=== PATIENT | male | born 1960 | race Caucasian/White ===

== ENCOUNTER 2024-05-16 16:43 | Outpatient (CLI) | payer BC, SELFPAY ==
--- NOTE | ~2024-05-16 | XR_ITS ---
EXAM: XR facial bones min 3V DATE: 05/16/2024 17:07 HISTORY: Rt side facial lump swelling post trauma x1 mo . COMPARISON: None available. FINDINGS: Normal mineralization. No fracture or dislocation. No lytic or blastic lesion. Intact, sym metric orbits. The aerated spaces are clear. No abnormal intracranial calcification. No erosion or pe riosteal change. Soft tissues within normal limits. IMPRESSION: Unremarkable facial bone radiograph findings. If clinical suspicion of injury is high or symptoms persist, consider CT of the face for further evaluation. Reviewed, dictated and finalized at location K. IMPRESSION: Unremarkable facial bone radiograph findings. If clinical suspicion of injury is high or symptoms persist, consider CT of the face for further leonie luation.
== END 2024-05-16 16:44 | disposition home or self-care (01) ==
LOC: ANHIMG 16:44
PROVIDERS: PCP Family Medicine; Visit Provider Physician Assistant
DX: R22.0 Localized swelling, mass and lump, head (principal)
CPT/HCPCS: 70150

== ENCOUNTER 2024-05-22 07:48 | Outpatient (CLI) | payer BC, SELFPAY ==
--- NOTE | ~2024-05-22 | CT_ITS ---
CT facial bones w con Ordering provider: Kady Mukherjee, PAC History: . R22.0 - Localized swelling, mass and lump, head . Comparison: None. Technique: Thin slice axial CT of the facial bones was performed without contrast. Coronal and sagit mandie reformatted images were also obtained. . Automated exposure control and iterative reconstruction technique were employed. The dose-length product was 281.92 mGy-cm. 75 mL Omnipaque 350 was given IV . FINDINGS: PARANASAL SINUSES: Well aerated. BONES: No facial fracture including no nasal bone fracture. ORBITS AND SUPERFICIAL SOFT TISSUES: The optic globes and orbits are normal. Multilobulated Soft tiss ue density seen anterior to the right ear measuring 1.3 x 1 cm. And 0.8 x 1.3 cm. The caudocranial me asurement of this mass is 3 cm. This may be a lymph nodes. Soft tissue density also seen inferior to the right submandibular gland which may be part of the gland. Further evaluation advised. Follow-up advised. The superficial soft tissues are normal. VISUALIZED MASTOIDS: Well aerated. LIMITED VISUALIZED BRAIN PARENCHYMA: Normal. Right parapharyngeal enlarged lymph nodes seen measuring 2.2 x 2.7 x2.5 cm. IMPRESSION: No facial fracture. Mass in the preauricular area which measures 1.3 x 1 x 3 cm. Further evaluation advised. Necrotic lymph nodes seen in the right parapharyngeal space which measures 2.2 x 2.7 x2.5 cm. Reviewed, dictated and finalized at location A.
== END 2024-05-22 07:49 | disposition home or self-care (01) ==
PROVIDERS: PCP Family Medicine; Visit Provider Physician Assistant
DX: R22.0 Localized swelling, mass and lump, head (principal)
CPT/HCPCS: 70487; Q9967

== ENCOUNTER 2024-06-05 09:25 | Outpatient (CLI) | payer BC, SELFPAY ==
--- NOTE | ~2024-06-05 | US_ITS ---
EXAMINATION: US FNA w image guidance DATE: 06/05/2024 11:07 INDICATION: Right parotid nodule TECHNIQUE: A time-out was performed to verify the patient's name, date of , and procedure to be performed . The procedure and its benefits and risks were discussed with the patient. Risks specifically discus sed included bleeding and infection. The patient understood the risks and agreed to proceed. The prea uricular right face was prepped and draped in the usual sterile manner. 2 mL 1% lidocaine was used f or local anesthesia. 6 passes were made with a 25G needle into the lesion. Appropriate needle locat ion was documented with continuous sonographic guidance. A sterile bandage was applied. There were no immediate complications. FINDINGS: Grayscale ultrasound images demonstrate biopsy needles advanced into a 2.7 x 1.2 cm lobular hypoechoi c nodule at the posterior superior right parotid. IMPRESSION: 1. Successful ultrasound-guided fine needle aspiration of a 2.7 x 1.2 cm right parotid nodule of con cern. Reviewed, dictated and finalized at location A. IMPRESSION: 1. Successful ultrasound-guided fine needle aspiration of a 2.7 x 1.2 cm right parotid nodule of concern.
--- NOTE | ~2024-06-05 | US_ITS ---
EXAMINATION: US biopsy lymph node DATE: 06/05/2024 11:07 INDICATION: Right jugular chain lymph node TECHNIQUE: The procedure including the risks and benefits was discussed with the patient. Risks discu ssed included bleeding and infection. The patient understood the risks and agreed to proceed. The sk in overlying the right neck was prepped and draped in usual sterile fashion. Anesthetic was administ ered with 1% lidocaine subcutaneously. An 18 gauge core biopsy needle was advanced under continuous ultrasound observation to the enlarged lymph node of interest. 4 core biopsy specimens were obtained . The needle was removed and the entry site was cleaned and dressed. Post procedure ultrasound demo nstrated no hemorrhage. FINDINGS: Ultrasound images demonstrate biopsy needle advanced into the 3.4 x 2.1 cm right jugular ch ain lymph node of concern. IMPRESSION: 1. Successful Ultrasound-guided biopsy of a 3.4 x 2.1 cm enlarged right jugular chain lymph node. Reviewed, dictated and finalized at location A.
== END 2024-06-05 09:26 | disposition home or self-care (01) ==
PROVIDERS: PCP Family Medicine; Visit Provider Physician Assistant
DX: C07 Malignant neoplasm of parotid gland (principal)
CPT/HCPCS: 10005; 10006; 38505; 76942; 88108; 88305; 88342

== ENCOUNTER 2024-07-04 08:12 | Outpatient (CLI) | payer BC, SELFPAY ==
--- NOTE | ~2024-07-04 | CT_ITS ---
EXAMINATION: CT soft tissue neck chest w DATE: 07/04/2024 09:03 INDICATION: Mucosal epidermoid carcinoma. TECHNIQUE: Computed tomography (CT) of the neck and chest was performed with 75 mL Omnipaque-350 intr avenous contrast. Automated exposure control and iterative reconstruction technique were employed. Th e dose-length product was 811.75 mGy-cm. COMPARISON: None FINDINGS: CT NECK: There is a right preauricular mass with involvement of the parotid gland measuring 2.8 x 1.6 x 3.5 cm. There is a 3.5 x 2.7 cm right high internal jugular chain lymph node. There is mild plaque in proximal left internal carotid artery with 0% stenosis relative to normal distal artery lumen oscar meter. There is mild mucosal thickening in the ethmoid sinuses. The mastoid air cells are normal. The re is severe cervical spondylosis. CT CHEST: There is mild emphysema. A calcified left lung nodule and calcified left hilar lymph nodes are consistent with old granulomatous disease. There is mild dependent atelectasis bilaterally. No pl eural effusion. The heart size is normal. There are coronary artery calcifications. No pericardial ef fusion. There is a 2.6 cm cyst in the liver. There is mild cervical spondylosis. IMPRESSION: 1. 2.8 x 1.6 x 3.5 cm right preauricular mass with involvement of the parotid gland, consistent with primary malignancy. 2. Enlarged right high internal jugular chain lymph node, consistent with metastatic disease. 3. Mild emphysema. Reviewed, dictated and finalized at location A. IMPRESSION: 1. 2.8 x 1.6 x 3.5 cm right preauricular mass with involvement of the parotid g land, consistent with primary malignancy. 2. Enlarged right high internal jugular chain lymph node, consistent with metas tatic disease. 3. Mild emphysema.
[2024-07-04 08:48] LABS: Estimated Glomerular Filt Rate > 60
== END 2024-07-04 08:13 | disposition home or self-care (01) ==
PROVIDERS: PCP Family Medicine; Visit Provider Internal Medicine Hematology & Oncology
DX: C08.0 Malignant neoplasm of submandibular gland (principal); C07 Malignant neoplasm of parotid gland; R59.0 Localized enlarged lymph nodes; J43.9 Emphysema, unspecified
CPT/HCPCS: 70491; 71260; Q9967

== ENCOUNTER 2024-08-20 08:59 | Outpatient (CLI) | payer BC, SELFPAY ==
--- NOTE | ~2024-08-20 | PE_ITS ---
EXAMINATION: PET skull to mid thigh DATE: 08/20/2024 11:28 INDICATION: Malignant neoplasm of prostate gland. TECHNIQUE: Blood glucose level was 96 mg/dL. 8.538 mCi of 18-fluorodeoxyglucose (18-FDG) was administ ered i.v. Low dose computed tomography (CT) images were acquired from the base of the brain to the pr oximal thighs for attenuation correction and anatomic localization. Automated exposure control was em ployed. Dose-length product (DLP) was 1045 mGy-cm. Positron emission tomography (PET) images were acq uired in the same distribution. COMPARISON: CT neck and chest 07/04/2024 FINDINGS: Head/neck: There is a 2.9 x 2.2 cm mass in the expected area of superficial right parotid gland with peripheral activity measuring up to maximum SUV of 5.0. There is a 1.7 x 0.9 cm mass in deep right pa rotid gland abutting the temporomandibular joint with maximum SUV of 31.5. There is fat stranding in right neck, likely changes of surgery and/or radiation therapy. Right submandibular gland is small or absent. Chest: There is mild emphysema. No pleural effusion. The heart size is normal. No pericardial effusio n. There are coronary artery calcifications. Abdomen/pelvis/proximal thighs: There is diffuse hepatic steatosis. There is a 2.5 cm cyst in the chiara er. The gallbladder, spleen, pancreas, adrenal glands, and right kidney are normal. There is a 6 mm h yperdense cyst in left kidney. The prostate is moderately enlarged. There is diffuse bladder wall thi ckening, likely secondary to chronic obstruction. There is diverticulosis of the colon without eviden ce of diverticulitis. There are no dilated loops of bowel. The appendix is normal. There are no patho logically enlarged lymph nodes. There is no free intraperitoneal fluid. There is no osseous malignanc y. IMPRESSION: 1. Mass in superficial right parotid gland with low central activity, consistent with surgical change . Mildly increased peripheral activity may be postsurgical inflammation and/or malignancy. 2. Mass in deep right parotid gland with increased activity, consistent with residual or recurrent pr imary malignancy. Reviewed, dictated and finalized at location A. IMPRESSION: 1. Mass in superficial right parotid gland with low central activity, consisten t with surgical change. Mildly increased peripheral activity may be postsurgica l inflammation and/or malignancy. 2. Mass in deep right parotid gland with increased activity, consistent with re sidual or recurrent primary malignancy.
[2024-08-20 09:49] LABS: Glucose Point of Care 96 mg/dl (65-105)
== END 2024-08-20 09:00 | disposition home or self-care (01) ==
PROVIDERS: PCP Family Medicine; Visit Provider Radiology Radiation Oncology
DX: C07 Malignant neoplasm of parotid gland (principal)
CPT/HCPCS: 78815; A9552

== ENCOUNTER 2024-10-22 10:25 | Observation (INO) | payer BC, SELFPAY ==
[2024-10-22] VITALS (41 sets, daily range): BP systolic 139–159; BP diastolic 80–117; PULSE 55–138; RESP 4–20; TEMP 36.6–36.7; O2SAT 95–100; BMI 21.5
[2024-10-22 11:38] LABS: Basophils Percent Auto 0.1 % (0.2-1.2); Hematocrit 46.6 % (42.0-52.0); Hemoglobin 15.5 g/dL (14.0-18.0); Immature Granulocyte Absolute 0.02 K/mm3 (0.00-0.031); Immature Granulocyte Percent A 0.3 % (0-0.5); Immature Platelet Fraction Pct 5.6 % (0.9-11.2); Lymphocytes Absolute Auto 0.27 K/mm3 (0.9-3.2); Lymphocytes Percent Auto 3.7 % (18.3-44.2); Mean Corpuscular HGB Conc 33.3 g/dl (32-36); Mean Corpuscular Hemoglobin 28.5 pg (26-34); Mean Corpuscular Volume 85.7 fl (80-100); Mean Platelet Volume 11.9 fl (7.4-10.4); Monocytes Absolute Auto 0.6 K/mm3 (0.1-0.6); Monocytes Percent Auto 7.9 % (2.6-8.5); Neutrophils Absolute Auto 6.5 K/mm3 (1.3-6.7); Platelet Count Result 53 k/mm3 (150-375); Red Blood Count 5.44 M/mm3 (4.6-6.20); Red Cell Distribution Width 14.7 % (11.5-14.5); White Blood Count 7.4 K/mm3 (4.5-10.0)
[2024-10-22 11:49] LABS: Alanine Aminotransferase 29 U/L (6-50); Albumin Level 4.7 g/dL (3.5-5.1); Alkaline Phosphatase 105 U/L (38-126); Anion Gap 11 mmol/L (4-12); Aspartate Amino Transferase 27 U/L (17-59); Bilirubin,Total 0.9 mg/dL (0.2-1.3); Blood Urea Nitrogen 59 mg/dL (9-20); Calcium 10.1 mg/dL (8.4-10.2); Carbon Dioxide 27 mmol/L (22-30); Chloride 116 mmol/L (98-107); Estimated CRCL calculation 45 ml/min; Estimated Glomerular Filt Rate 55; Glucose 127 mg/dL (65-110); Sodium 154 mmol/L (137-145)
[2024-10-22 11:59] LABS: INR 1.2; Partial Thromboplastin Time 22.7 Seconds (22.3-36.8); Prothrombin Time 16.2 Seconds (11.1-14.7)
[2024-10-22] MEDS: SODIUM CHLORIDE 0.9% IV 1,000 ML 999 ML IV CONT ×2 (14:20→14:53)
--- NOTE | 2024-10-22 14:39 | ED.GENADULT ---
HPI - General Adult General Chief complaint: Unspecified Stated complaint: feel like i'm dying /recently finished Chemo Time Seen by Provider: 10/22/24 13:33 History of Present Illness HPI narrative: 64-year-old male presenting with nausea and vomiting. He is currently undergoing chemo and radiation therapy for parotid gland cancer. Over the last several days he has been persistently nauseated and has been only able to tolerate minimal p.o. intake. He has been using his p.o. Zofran and eating Pedialyte pops which seemed to stay down. Unfortunately he continues to vomit and he is concern for dehydration. 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 History of radical neck dissection Modified, 07/16/2024 with Janes FRANCOIS. History of tonsillectomy Range teeth removed Family History Family History Father Leukemia Mother Dementia Age-related macular degeneration Corneal disease Social History Social History Smoking status: Never smoker Tobacco type: cigars Second hand tobacco smoke exposure: No Alcohol intake: former Substance use: former Substance use type: marijuana Do You Feel Safe in your Home?: Yes Lack of Transportation: No Lack of Food: Never True Current Housing: I Have Housing Concerned About Future Housing: No Difficulty Paying Gas/Electric Bills: No Difficulty Paying for Meds: No Currently Unemployed: No Education: Trade/Vocational Certificate Difficulty w/ Childcare or Family Care: No Living arrangements: with family Occupation/Education: occupation Gender identity (if verbalized by the patient): Male Sexual Orientation (if Verbalized by the Patient): Straight or Heterosexual Spiritual care concerns: No Exam Narrative: GENERAL: Nontoxic, appears uncomfortable, pleasant cooperative HEAD: Normocephalic, atraumatic. EYES: PERRLA and EOMI. ENT: Mucous membranes tacky NECK: Supple. Erythematous skin changes right lateral neck from radiation CHEST: No respiratory distress. HEART: Tachycardic, regular rhythm ABDOMEN: Soft, nontender, nondistended EXTREMITIES: Normal range of motion SKIN: Warm, dry, no rash. NEURO: Alert and oriented x3. PSYCH: Normal mood and affect. Course Vital Signs Vital signs: Vital Signs Temperature 97.9 F 10/22/24 10:27 Pulse Rate 138 H 10/22/24 10:27 Respiratory Rate 18 10/22/24 10:27 Blood Pressure 149/108 H 10/22/24 10:27 Pulse Oximetry 100 10/22/24 10:27 Oxygen Delivery Room Air 10/22/24 10:27 Temperature 98.7 F 10/23/24 14:00 Pulse Rate 73 10/23/24 14:00 Respiratory Rate 18 10/23/24 14:00 Blood Pressure 150/99 H 10/23/24 14:00 Pulse Oximetry 99 10/23/24 14:00 Oxygen Delivery Room Air 10/23/24 09:25 Medical Decision Making MDM Narrative Medical decision making narrative: 64-year-old male presenting with intractable nausea and vomiting. Patient tachycardic on arrival, this had improved with the time I evaluated him. Exam remarkable for the above. Blood work with hypernatremia and elevated BUN to creatinine ratio concerning for dehydration. Patient has received several L of fluids and several rounds of IV antiemetics. Feel he would benefit from admission for further management. He is agreeable with this plan. Spoke with the hospitalist who has accepted him for admission. Differential Diagnosis Differential Diagnosis: Intractable nausea and vomiting, dehydration, hypernatremia Medical Records Medical records reviewed: Yes I reviewed the external patient's medical records. Vital Signs Vital Signs: Vital Signs Temperature 97.9 F 10/22/24 10:27 Pulse Rate 138 H 10/22/24 10:27 Respiratory Rate 18 10/22/24 10:27 Blood Pressure 149/108 H 10/22/24 10:27 Pulse Oximetry 100 10/22/24 10:27 Oxygen Delivery Room Air 10/22/24 10:27 Temperature 98.7 F 10/23/24 14:00 Pulse Rate 73 10/23/24 14:00 Respiratory Rate 18 10/23/24 14:00 Blood Pressure 150/99 H 10/23/24 14:00 Pulse Oximetry 99 10/23/24 14:00 Oxygen Delivery Room Air 10/23/24 09:25 Lab Data Lab results reviewed: Yes I reviewed the patient's lab results. 10/23/24 05:56 10/23/24 05:56 Labs: Lab Results 10/22/24 10/22/24 Range/Units 11:31 16:05 WBC 7.4 (4.5-10.0) K/mm3 RBC 5.44 (4.6-6.20) M/mm3 Hgb 15.5 (14.0-18.0) g/dL Hct 46.6 (42.0-52.0) % MCV 85.7 (80-100) fl MCH 28.5 (26-34) pg MCHC 33.3 (32-36) g/dl RDW 14.7 H (11.5-14.5) % Plt Count 53 L D (150-375) k/mm3 MPV 11.9 H (7.4-10.4) fl Immature Gran % (Auto) 0.3 (0-0.5) % Neut % (Auto) 88.0 H (45.5-73.1) % Lymph % (Auto) 3.7 L (18.3-44.2) % [place] % (Auto) 7.9 (2.6-8.5) % Eos % (Auto) 0.0 (0-4.4) % Baso % (Auto) 0.1 L (0.2-1.2) % Lymph # (Auto) 0.27 L (0.9-3.2) K/mm3 [place] # (Auto) 0.6 (0.1-0.6) K/mm3 Eos # (Auto) 0.0 (0-0.3) K/mm3 Baso # (Auto) 0.0 (0.0-0.1) K/mm3 Abs Immat Gran (auto) 0.02 (0.00-0.031) K/mm3 Absolute Neuts (auto) 6.5 (1.3-6.7) K/mm3 Absolute Nucleated RBC 0.000 (0.0-0.012) K/mm3 Nucleated RBC % 0.0 (0.0-0.2) % % Immature Plt Fraction 5.6 (0.9-11.2) % PT 16.2 H (11.1-14.7) Seconds INR 1.2 APTT 22.7 (22.3-36.8) Seconds Sodium 154 H (137-145) mmol/L Potassium 4.0 (3.4-5.0) mmol/L Chloride 116 H (98-107) mmol/L Carbon Dioxide 27 (22-30) mmol/L Anion Gap 11 (4-12) mmol/L BUN 59 H (9-20) mg/dL Creatinine 1.30 (0.7-1.3) mg/dL Estim Creat Clear Calc 45 ml/min Estimated GFR 55 L (59 - ) Glucose 127 H (65-110) mg/dL Calcium 10.1 (8.4-10.2) mg/dL Total Bilirubin 0.9 (0.2-1.3) mg/dL AST 27 (17-59) U/L ALT 29 (6-50) U/L Alkaline Phosphatase 105 (38-126) U/L Total Protein 8.0 (6.3-8.2) g/dL Albumin 4.7 (3.5-5.1) g/dL Lipase 61 (23-300) U/L Urine Color Yellow (Yellow) Urine Appearance Clear (Clear) Urine pH 5.0 (5.0-9.0) Ur Specific [place] 1.022 (1.001-1.035) Urine Protein 1+ H (Negative) mg/dL Urine Glucose (UA) Negative (Negative) mg/dL Urine Ketones 1+ H (Negative) mg/dL Ur Blood (Man) Negative (Negative) Urine Nitrate Negative (Negative) Urine Bilirubin Negative (Negative) Urine Urobilinogen 1.0 (<2.0) mg/dL Leukocyte Esterase Rfl Negative (Negative) NATALIE/UL Urine RBC 0-2 (0-2) /hpf Urine WBC 0-5 (0-3) /hpf Ur Squamous Epith Cells None seen (Few) /hpf Urine Bacteria None seen /hpf Urine Casts 3-5 Critical Care Time Critical Care Time Critical Care Time: No Discharge Plan Discharge Clinical Impression: Chemotherapy-induced nausea and vomiting, Head and neck cancer, Hypernatremia Patient Disposition: Still a Patient Condition: Stable
[2024-10-22] MEDS: FAMOTIDINE 20 MG/2 ML VIAL IV PUSH (14:53)
--- NOTE | 2024-10-22 15:03 | PC.NURSE ---
Lab called at this time to add Lipase to bloodwork already sent down
--- NOTE | 2024-10-22 15:04 | PC.NURSE ---
Educated patient that urine sample is needed to send to lab, urinal provided. Pt will use call light when he is able to void.
[2024-10-22] MEDS: ONDANSETRON INJ 4 MG/2 ML VIAL IV PUSH ×2 (15:07→22:01)
[2024-10-22 15:43] LABS: Lipase 61 U/L (23-300)
[2024-10-22 16:15] LABS: Add Urine Microscopic? YES; Appearance Urine Clear (Clear); Bacteria Urine None Seen /hpf; Bilirubin Urine Negative (Negative); Blood Urine Negative (Negative); Color Urine Yellow (Yellow); Glucose Urine UA Negative (Negative); Ketones Urine 1+ mg/dL (Negative); Leukocyte Esterase Ur Negative LEU/UL (Negative); Nitrate Urine Negative (Negative); Protein Urine 1+ mg/dL (Negative); RBC Urine 0-2 /hpf (0-2); Specific Grav Ur 1.022 (1.001-1.035); Squamous Epithelial Cell Urine None Seen /hpf (Few); WBC Urine 0-5 /hpf (0-3)
[2024-10-22] MEDS: SILVER SULFADIAZINE 1% CR 50 GM JAR (*BKC) 1 APPLIC (16:45)
--- NOTE | 2024-10-22 18:03 | PC.NURSE ---
Patient wound on neck was cleansed, Silvadene cream applied, guaze placed. patient states that he has been scrubbing the site and getting all the crusts off and then putting a little cream on the wound but states it keeps bleeding and looking worse Patient educated on care for radiation burn, and importance of not scrubbing the skin or peeling any of the peeling skin. Patient verbalizes understanding. printout for care of radiation burn provided to the patient.
[2024-10-22 18:07] LABS: Glucose Point of Care 108 mg/dl (65-105)
--- NOTE | 2024-10-22 18:54 | P.HP_ITS ---
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 The patient presents here from home a for further evaluation of nausea and vomiting. The patient reports that he has been feeling unwell since his last chemo and radiation treatment. Last chemo and radiation treatment were on 10/16/2024. 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 Since sees treatments he has developed nausea and vomiting has been ongoing since his second treatment, however after this most recent treatment the Zofran was not working as well and he felt too sick to even take them at points. States he felt like he was eating them like candy. He has been unable to keep solids down, last able to keep cereal down two days ago with nothing since. Patient has been utilizing his p.o. Zofran prescription with little relief. He has been able to tolerate Pedialyte popsicles but nothing else. Patient is now concern for dehydration due to development of generalized weakness and dizziness, then was experiencing nausea with any liquid intake. Patient has also had weight loss, at most recent appt he was 140 lbs, now weighing 132 lbs. Initial VS at presentation: Temp 97.9? F, HR 138, RR 18, 149/108, and 100% on RA. ED workup showed: No leukocytosis, no anemia, platelet count 53, INR 1.2, sodium 154, creatinine 1.3 and GFR 55 (creatinine 1.2 and GFR >60 on 10/11/2024), initial glucose 108. UA showed 1+ protein and 1+ ketones, otherwise normal. 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 History of radical neck dissection Modified, 07/16/2024 with Janes FRANCOIS. History of tonsillectomy [place] teeth removed Family History Family History Father Leukemia Mother Dementia Age-related macular degeneration Corneal disease Social History Social History Smoking status: Never smoker Tobacco type: cigars Second hand tobacco smoke exposure: No Alcohol intake: former Substance use: former Substance use type: marijuana Do You Feel Safe in your Home?: Yes Lack of Transportation: No Lack of Food: Never True Current Housing: I Have Housing Concerned About Future Housing: No Difficulty Paying Gas/Electric Bills: No Difficulty Paying for Meds: No Currently Unemployed: No Education: Trade/Vocational Certificate Difficulty w/ Childcare or Family Care: No Living arrangements: with family Occupation/Education: occupation Gender identity (if verbalized by the patient): Male Sexual Orientation (if Verbalized by the Patient): Straight or Heterosexual Spiritual care concerns: No Meds Home Medications and Allergies Home Medications Medication Instructions Recorded Confirmed Type atorvastatin 20 mg tablet 20 mg PO DAILY #30 tabs 07/09/24 10/22/24 Rx ondansetron 8 mg disintegrating 8 mg PO Q8H PRN Nausea And Vomiting 10/11/24 10/22/24 History tablet lisinopril 20 mg tablet 20 mg PO DAILY 10/22/24 10/22/24 History Allergies Allergy/AdvReac Type Severity Reaction Status Date / Time No Known Allergies Allergy Unknown Verified 10/11/24 10:15 Vital Signs Vital Signs - 24 hr 10/22/24 10:27 10/22/24 11:32 10/22/24 12:22 Temperature 97.9 F Pulse Rate 138 H 102 H Respiratory Rate 18 16 18 Blood Pressure 149/108 H 156/112 H Pulse Oximetry 100 95 Oxygen Delivery Room Air 10/22/24 10:37 10/22/24 10:46 10/22/24 11:00 Temperature Pulse Rate 112 H 104 H Respiratory Rate 20 12 10 L Blood Pressure 152/117 H Pulse Oximetry 98 97 96 Oxygen Delivery 10/22/24 11:01 10/22/24 11:16 10/22/24 11:30 Temperature Pulse Rate 103 H 104 H 102 H Respiratory Rate 10 L 10 L 9 L Blood Pressure 156/112 H Pulse Oximetry 97 97 Oxygen Delivery 10/22/24 11:31 10/22/24 11:46 10/22/24 12:01 Temperature Pulse Rate 108 H 105 H 90 Respiratory Rate 16 9 L 11 L Blood Pressure Pulse Oximetry 96 96 Oxygen Delivery 10/22/24 12:15 10/22/24 12:16 10/22/24 12:56 Temperature Pulse Rate 105 H 108 H 100 Respiratory Rate 17 11 L 11 L Blood Pressure 145/110 H Pulse Oximetry 96 97 Oxygen Delivery 10/22/24 13:00 10/22/24 13:01 10/22/24 13:15 Temperature Pulse Rate 101 H 98 90 Respiratory Rate 10 L 13 16 Blood Pressure 145/116 H 142/115 H Pulse Oximetry 96 96 97 Oxygen Delivery 10/22/24 13:16 10/22/24 13:34 10/22/24 13:45 Temperature Pulse Rate 105 H 82 74 Respiratory Rate 10 L 12 14 Blood Pressure 141/104 H Pulse Oximetry 98 96 97 Oxygen Delivery 10/22/24 13:46 10/22/24 14:00 10/22/24 14:01 Temperature Pulse Rate 76 64 70 Respiratory Rate 14 15 14 Blood Pressure 139/103 H Pulse Oximetry 96 96 97 Oxygen Delivery 10/22/24 14:24 10/22/24 14:36 10/22/24 15:04 Temperature Pulse Rate 81 69 70 Respiratory Rate 9 L 17 14 Blood Pressure Pulse Oximetry 98 100 100 Oxygen Delivery 10/22/24 15:28 10/22/24 15:30 10/22/24 15:45 Temperature Pulse Rate 68 64 69 Respiratory Rate 15 4 L 13 Blood Pressure Pulse Oximetry 100 100 98 Oxygen Delivery 10/22/24 15:46 10/22/24 16:00 10/22/24 16:01 Temperature Pulse Rate 68 76 72 Respiratory Rate 14 11 L 13 Blood Pressure 141/105 H 159/102 H Pulse Oximetry 100 99 97 Oxygen Delivery 10/22/24 16:23 10/22/24 16:32 10/22/24 16:45 Temperature Pulse Rate 70 68 59 L Respiratory Rate 19 9 L 11 L Blood Pressure Pulse Oximetry 98 97 98 Oxygen Delivery 10/22/24 16:46 10/22/24 17:35 10/22/24 17:45 Temperature Pulse Rate 61 58 L 56 L Respiratory Rate 12 12 14 Blood Pressure 152/90 H Pulse Oximetry 97 97 98 Oxygen Delivery 10/22/24 18:02 Temperature Pulse Rate 55 L Respiratory Rate 13 Blood Pressure Pulse Oximetry 98 Oxygen Delivery Exam Const: General: comfortable and no acute distress Other: , male, nontoxic appearance HENMT: Face/Nose/Sinus: Normal nares present Mouth: Yes moist mucous membranes Eyes: General: appearance normal, both eyes and all related structures Sclera: sclerae normal Pupils: Equal, round and reactive pupils present EOM: EOMs intact bilaterally Neck: Other: Erythema and radiation changes to right lateral neck Resp: Effort & Inspection: normal respiratory effort Auscultation: clear to auscultation bilaterally Cardio: Rate: regular rate Rhythm: regular rhythm Other: S1-S2 present without murmur, rub, ectopy GI: Other: Abdomen soft, nondistended, nontender. Skin: General skin exam: normal color and no rashes or lesions noted Wounds: no wounds Neuro: Speech: normal speech Motor exam (neuro): 5/5 motor strength present throughout Sensory Exam: normal sensation Other: A&O x4 Extrem: General: normal to inspection Psych: Mental Status: mental status grossly normal Affect: normal affect Other: Good insight and judgment, pleasant H&P: Results Labs Labs: Short CBC 10/22/24 Range/Units 11:31 WBC 7.4 (4.5-10.0) K/mm3 Hgb 15.5 (14.0-18.0) g/dL Hct 46.6 (42.0-52.0) % Plt Count 53 L D (150-375) k/mm3 BMP 10/22/24 11:31 Sodium 154 H Potassium 4.0 Chloride 116 H Carbon Dioxide 27 BUN 59 H Creatinine 1.30 Glucose 127 H Calcium 10.1 Liver Function 10/22/24 Range/Units 11:31 Total Bilirubin 0.9 (0.2-1.3) mg/dL AST 27 (17-59) U/L ALT 29 (6-50) U/L Alkaline Phosphatase 105 (38-126) U/L Albumin 4.7 (3.5-5.1) g/dL Urine 10/22/24 Range/Units 16:05 Urine Color Yellow (Yellow) Urine Appearance Clear (Clear) Urine pH 5.0 (5.0-9.0) Ur Specific [place] 1.022 (1.001-1.035) Urine Protein 1+ H (Negative) mg/dL Urine Glucose (UA) Negative (Negative) mg/dL Assessment and Plan Assessment and plan (1) Chemotherapy-induced nausea and vomiting: Code(s): R11.2 - Nausea with vomiting, unspecified; T45.1X5A - Adverse effect of antineoplastic and immunosuppressive drugs, initial encounter Status: Acute Assessment and Plan: - 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 1st line Zofran 4 mg IVP Q 4 2nd line metoclopramide 10 mg IVP q.6 3rd line Benadryl 25 mg IVP - dietitian consulted for possible supplements/assistance with increasing nutrition - IV fluids: D5 LR at 75 mL/hour. Monitor I&Os. - glucose checks q.6 hour until tolerating p.o., hypoglycemia protocol in place - mild hypernatremia, suspect hemoconcentrated. Trend electrolytes. (2) Hypertension: Qualifiers: Hypertension type: primary hypertension Qualified Code(s): I10 - Essential (primary) hypertension Code(s): I10 - Essential (primary) hypertension Status: Chronic Assessment and Plan: - chronic, currently 152/90 - continue home medications: Lisinopril 20 mg daily - monitor Plan Diet: Regular GI Prophylaxis: Not currently indicated DVT Prophylaxis: SCDs Lines: Peripheral Code Status: Full code Quality VTE Prophylaxis VTE prophylaxis: mechanical ordered Hospitalist MIPS Advance Care Plan I have confirmed that the patient's Advanced Care Plan is present, code status is documented, or surrogate decision maker is listed in patient medical record.: Yes Medication Reconciliation I have utilized all available resources to obtain, update and review the patients current medications (includes all prescriptions, OTC, herbals, cannabis, and nutritional supplements).: Yes
[2024-10-22] MEDS: DEXTROSE 5%/LACTATED RINGERS 1,000 ML 75 ML IV CONT (19:31)
--- NOTE | 2024-10-22 21:35 | ADMGEN ---
This patient, Noel Sood Susan, was admitted to Medical Room 344-01. Patient/family oriented to hospital policies and general routines including ID bracelet, bed and alarms, visiting hours, pain management, procedures, bathroom and other care routines, personal items, smoking policy, room service/diet, and visiting hours. Information on how to activate the Rapid Response Team has been discussed. Patient/Family are encouraged to report perceived risks to care and to ask questions if they do not understand what they are told or what they should do.
[2024-10-22 23:41] LABS: Glucose Point of Care 108 mg/dl (65-105)
[2024-10-23] MEDS: ONDANSETRON INJ 4 MG/2 ML VIAL IV PUSH ×2 (04:14→23:31)
[2024-10-23 06:00] VITALS: BP 160/84; PULSE 54; RESP 20; TEMP 36.9; O2SAT 99
[2024-10-23 06:26] LABS: Basophils Percent Auto 0.2 % (0.2-1.2); Hematocrit 41.2 % (42.0-52.0); Hemoglobin 12.9 g/dL (14.0-18.0); Immature Granulocyte Absolute 0.03 K/mm3 (0.00-0.031); Immature Granulocyte Percent A 0.6 % (0-0.5); Immature Platelet Fraction Pct 6.2 % (0.9-11.2); Lymphocytes Absolute Auto 0.18 K/mm3 (0.9-3.2); Lymphocytes Percent Auto 3.5 % (18.3-44.2); Mean Corpuscular HGB Conc 31.3 g/dl (32-36); Mean Corpuscular Hemoglobin 27.9 pg (26-34); Mean Corpuscular Volume 89.2 fl (80-100); Mean Platelet Volume 11.7 fl (7.4-10.4); Monocytes Absolute Auto 0.4 K/mm3 (0.1-0.6); Monocytes Percent Auto 7.3 % (2.6-8.5); Neutrophils Absolute Auto 4.5 K/mm3 (1.3-6.7); Neutrophils Percent Auto 88.4 % (45.5-73.1); Platelet Count Result 40 k/mm3 (150-375); Red Blood Count 4.62 M/mm3 (4.6-6.20); Red Cell Distribution Width 14.6 % (11.5-14.5); White Blood Count 5.1 K/mm3 (4.5-10.0)
[2024-10-23 06:31] LABS: Anion Gap 5 mmol/L (4-12); Blood Urea Nitrogen 44 mg/dL (9-20); Calcium 9.2 mg/dL (8.4-10.2); Carbon Dioxide 28 mmol/L (22-30); Chloride 121 mmol/L (98-107); Estimated CRCL calculation 46 ml/min; Estimated Glomerular Filt Rate > 60; Glucose 121 mg/dL (65-110); Magnesium 2.6 mg/dL (1.6-2.3); Potassium 3.7 mmol/L (3.4-5.0); Sodium 154 mmol/L (137-145)
[2024-10-23 08:29] VITALS: O2SAT 97
[2024-10-23] MEDS: DEXTROSE 5% 1,000 ML 1,000 ML 100 ML IVPB (09:23)
[2024-10-23] MEDS: ATORVASTATIN 20 MG TABLET PO (09:23)
[2024-10-23] MEDS: lisinopriL 20 MG TABLET PO (09:24)
[2024-10-23 10:28] VITALS: BMI 21.5
[2024-10-23 11:56] LABS: Glucose Point of Care 126 mg/dl (65-105)
[2024-10-23 14:00] VITALS: BP 150/99; PULSE 73; RESP 18; TEMP 37.1; O2SAT 99
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
[2024-10-23 17:45] LABS: Glucose Point of Care 106 mg/dl (65-105)
[2024-10-23] MEDS: DEXTROSE 5%/LACTATED RINGERS 1,000 ML 75 ML IV CONT (21:06)
[2024-10-23 22:33] VITALS: BP 132/85; PULSE 56; RESP 20; TEMP 36.9; O2SAT 100
[2024-10-23 23:37] LABS: Glucose Point of Care 118 mg/dl (65-105)
[2024-10-24 06:13] VITALS: BP 140/83; PULSE 64; RESP 20; TEMP 36.3; O2SAT 100
[2024-10-24 06:17] LABS: Glucose Point of Care 131 mg/dl (65-105)
[2024-10-24] MEDS: ONDANSETRON INJ 4 MG/2 ML VIAL IV PUSH (06:46)
[2024-10-24] MEDS: ATORVASTATIN 20 MG TABLET PO (08:38)
[2024-10-24] MEDS: lisinopriL 20 MG TABLET PO (08:38)
--- NOTE | 2024-10-24 11:56 | PM.IMPN ---
Subjective Date/time seen: 10/24/24 11:56 Objective Data Vital Signs Vital Signs: Vital Signs - 24 hr 10/23/24 14:00 10/23/24 20:00 10/23/24 22:33 Temperature 98.7 F 98.5 F Pulse Rate 73 56 L Respiratory Rate 18 20 Blood Pressure 150/99 H 132/85 Pulse Oximetry 99 100 Oxygen Delivery Room Air 10/24/24 06:13 10/24/24 08:00 Temperature 97.3 F L Pulse Rate 64 Respiratory Rate 20 Blood Pressure 140/83 Pulse Oximetry 100 Oxygen Delivery Room Air Intake/Output Intake/Output: Intake & Output 10/21/24 10/22/24 10/23/24 10/24/24 23:59 23:59 23:59 23:59 Intake Total 1999 2960 400 Balance 1999 2960 400 Meds/Results Medications: Active Medications Generic Name Dose Route Start Last Admin Trade Name Freq PRN Reason Stop Dose Admin Atorvastatin Calcium 20 mg 10/23/24 09:00 10/24/24 08:38 Atorvastatin 20 Mg Tablet PO 20 mg DAILY [place] Administration Dextrose 12.5 gm 10/22/24 19:06 Dextrose 50% 25 Gm/50 Ml Syringe IV PUSH PRN PRN Hypoglycemia Protocol Diphenhydramine HCl 25 mg 10/22/24 19:03 Diphenhydramine Hcl Inj 50 Mg/Ml Vial IV PUSH Q4H PRN Nausea And Vomiting Glucagon 1 mg 10/22/24 19:06 Glucagon For Inj 1 Mg Vial IM PRN PRN Hypoglycemia Protocol Glucose 15 gm 10/22/24 19:06 Glucose Oral Gel 15 Gm Of Glucse In 37.5 Gm Tube PO PRN PRN Hypoglycemia Protocol Dextrose/Lactated Ringer's 1,000 mls @ 75 mls/hr 10/22/24 19:10 10/23/24 21:06 Dextrose 5%/Lactated Ringers IV CONT 75 mls/hr .[id number] [place] Administration Dextrose 1,000 mls @ 100 mls/hr 10/22/24 19:06 10/23/24 21:10 Dextrose 5% 1,000 Ml IVPB Infused PRN PRN Infusion Hypoglycemia Protocol Lisinopril 20 mg 10/23/24 09:00 10/24/24 08:38 Lisinopril 20 Mg Tablet PO 20 mg DAILY [place] Administration Metoclopramide HCl 10 mg 10/23/24 00:00 Metoclopramide Hcl Inj 10 Mg/2 Ml Vial IV PUSH Q6HR PRN NAUSEA/VOMITING Ondansetron HCl 4 mg 10/22/24 19:03 10/24/24 06:46 Ondansetron Inj 4 Mg/2 Ml Vial IV PUSH 4 mg Q4H PRN Administration Nausea And Vomiting Labs Labs: Laboratory Results - last 24 hr 10/23/24 10/23/24 10/23/24 11:53 17:42 23:34 POC Capillary Glucose 126 H 106 H 118 H 10/24/24 05:43 POC Capillary Glucose 131 H
[2024-10-24 12:09] LABS: Glucose Point of Care 107 mg/dl (65-105)
[2024-10-24 12:30] LABS: Basophils Percent Auto 0.2 % (0.2-1.2); Eosinophils Percent Auto 0.2 % (0-4.4); Hematocrit 37.6 % (42.0-52.0); Hemoglobin 12.5 g/dL (14.0-18.0); Immature Granulocyte Absolute 0.02 K/mm3 (0.00-0.031); Immature Granulocyte Percent A 0.4 % (0-0.5); Immature Platelet Fraction Pct 6.5 % (0.9-11.2); Lymphocytes Absolute Auto 0.34 K/mm3 (0.9-3.2); Lymphocytes Percent Auto 7.2 % (18.3-44.2); Mean Corpuscular HGB Conc 33.2 g/dl (32-36); Mean Corpuscular Hemoglobin 28.5 pg (26-34); Mean Corpuscular Volume 85.6 fl (80-100); Monocytes Absolute Auto 0.3 K/mm3 (0.1-0.6); Monocytes Percent Auto 6.3 % (2.6-8.5); Neutrophils Absolute Auto 4.1 K/mm3 (1.3-6.7); Neutrophils Percent Auto 85.7 % (45.5-73.1); Platelet Count Result 40 k/mm3 (150-375); Red Blood Count 4.39 M/mm3 (4.6-6.20); Red Cell Distribution Width 14.2 % (11.5-14.5); White Blood Count 4.7 K/mm3 (4.5-10.0)
[2024-10-24] MEDS: DEXTROSE 5%/LACTATED RINGERS 1,000 ML 75 ML IV CONT (12:51)
[2024-10-24 12:58] LABS: Alanine Aminotransferase 22 U/L (6-50); Albumin Level 3.9 g/dL (3.5-5.1); Alkaline Phosphatase 76 U/L (38-126); Anion Gap 8 mmol/L (4-12); Aspartate Amino Transferase 24 U/L (17-59); Bilirubin,Total 0.7 mg/dL (0.2-1.3); Blood Urea Nitrogen 25 mg/dL (9-20); Calcium 9.1 mg/dL (8.4-10.2); Carbon Dioxide 26 mmol/L (22-30); Chloride 113 mmol/L (98-107); Estimated CRCL calculation 55 ml/min; Estimated Glomerular Filt Rate > 60; Glucose 102 mg/dL (65-110); Potassium 3.2 mmol/L (3.4-5.0); Sodium 147 mmol/L (137-145)
[2024-10-24 14:00] VITALS: BP 138/83; PULSE 72; RESP 19; TEMP 37; O2SAT 99
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
== END 2024-10-24 17:30 | disposition home or self-care (01) ==
LOC: ANHED 14:26 → ANH3MED 22:40
PROVIDERS: Registered Nurse; Student in an Organized Health Care Education/Training Program; Admitting Provider Internal Medicine; Emergency Provider Emergency Medicine; PCP Family Medicine; Visit Provider Nurse Practitioner Acute Care
DX: R11.2 Nausea with vomiting, unspecified (principal); T45.1X5A Adverse effect of antineoplastic and immunosuppressive drugs, initial encounter; T30.0 Burn of unspecified body region, unspecified degree; Y63.3 Inadvertent exposure of patient to radiation during medical care; C07 Malignant neoplasm of parotid gland; E78.5 Hyperlipidemia, unspecified; I10 Essential (primary) hypertension; E43 Unspecified severe protein-calorie malnutrition; Z68.21 Body mass index [BMI] 21.0-21.9, adult; E87.0 Hyperosmolality and hypernatremia; K21.9 Gastro-esophageal reflux disease without esophagitis; Z79.899 Other long term (current) drug therapy
CPT/HCPCS: 36415; 80048; 80053; 81001; 82948; 83690; 83735; 85025; 85055; 85610; 85730; 96361; 96374; 96375; 96376; 99285; A9270; G0378; J2405; J7030; J7070; J7121

== ENCOUNTER 2025-01-28 10:47 | Outpatient (CLI) | payer BC, SELFPAY ==
--- NOTE | ~2025-01-28 | PE_ITS ---
EXAMINATION: PET skull to mid thigh DATE: 01/28/2025 12:54 INDICATION: Malignant neoplasm of the parotid gland. TECHNIQUE: Blood glucose level was 88 mg/dL. 10.103 mCi of 18-fluorodeoxyglucose (18-FDG) was adminis tered i.v. Low dose computed tomography (CT) images were acquired from the base of the brain to the p roximal thighs for attenuation correction and anatomic localization. Automated exposure control was e mployed. Dose-length product (DLP) was 820 mGy-cm. Positron emission tomography (PET) images were acq uired in the same distribution. COMPARISON: Neck CT 12/13/2024, PET/CT 08/20/2024, 07/04/2024 FINDINGS: Head/neck: There are surgical changes of the right parotid gland. There is soft tissue attenuation in the right parotid surgical bed and preauricular region with maximum SUV of 2.5. There is asymmetric soft tissue attenuation posterior to the right lateral pterygoid muscle and the mandibular condyle wi th maximum SUV of 2.7. There is a 15 x 12 mm left mid internal jugular chain node with maximum SUV of 32.7. Chest: There is mild emphysema. There is mild atelectasis bilaterally. Calcified left hilar lymph nod es are consistent with old edematous disease. No pleural effusion. The heart size is normal. There ar e coronary artery calcifications. No pericardial effusion. Abdomen/pelvis/proximal thighs: There are cysts in the liver measuring up to 2.9 cm. There is diffuse hepatic steatosis. The gallbladder, spleen, pancreas, adrenal glands, and kidneys are normal. The pr ostate is mildly enlarged. There is diverticulosis of the colon without evidence of diverticulitis. T here are no dilated loops of bowel. The appendix is normal. There are no pathologically enlarged lymp h nodes. There is no free intraperitoneal fluid. There is no osseous malignancy. IMPRESSION: 1. Enlarged left mid internal jugular chain node with increased activity, new from 12/13/2024, consist ent with metastatic disease. 2. Soft tissue in and around the right parotid gland with borderline increased activity, which may be surgical change and/or recurrent or residual neoplasm. Reviewed, dictated and finalized at location B. IMPRESSION: 1. Enlarged left mid internal jugular chain node with increased activity, new f rom 12/13/2024, consistent with metastatic disease. 2. Soft tissue in and around the right parotid gland with borderline increased activity, which may be surgical change and/or recurrent or residual neoplasm.
[2025-01-28 11:13] LABS: Glucose Point of Care 88 mg/dl (65-105)
--- OUTSIDE RECORDS SUMMARY | 2025-01-28 12:57 | XMS_ITS | Clinical Summary ---
Author Organization [facility] Nithya Kimble Address [address] [place] [address] Care Team Providers Care Juke Box Mechanic Name Role Phone Chai Escamilla MD Primary Care Provider Allergies No known active allergies Medications atorvastatin (LIPITOR) 20 mg tablet Take 20 mg by mouth. Active lisinopriL (PRINIVIL) 20 mg tablet Take 20 mg by mouth daily. Active ondansetron (ZOFRAN ODT) 8 mg Tablet, Rapid Dissolve Take 1 Tablet (8 mg) by mouth every 8 hours as needed for Nausea/Emesis . Dissolve 1 tablet on top of tongue then swallow with saliva every 8 hours as needed for nausea or vomiting 18 Tablet 1 4 Active silver sulfADIAZINE (SILVADENE) 1 % Cream Apply to affected area 2 times daily. 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 Abstract [facility] Oncology and Hematology - Jann Yolie Scruggs [address] [place] [address] Ryan Parker MD 01/18/2025 Abstract [facility] Oncology and Hematology [facility] [address] [place] [address] Ryan Parker MD 01/17/2025 4:30 PM PROCESSING ARCHIVIST Telephone Check Up [facility] Oncology and Hematology [facility] Yolie Scruggs [address] [place] [address] Ryan Parker MD 01/14/2025 Orders Only [facility] Oncology and Hematology Jann Yolie [address]s [address] [place] [address] Ryan Parker MD 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) 01/10/2025 10:00 AM PROCESSING ARCHIVIST Office Visit [facility] EAR, NOSE AND THROAT [facility] [address] [facility] [address] [place] [address] Ro Hernandez SLP Parotid mass (Primary Dx); Malignant neoplasm of parotid gland (CMS/HCC); 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); Acquired lymphedema; Oropharyngeal dysphagia 01/09/2025 External Device Data ST[facility] ABSTRACTION Provider, Abstract 01/08/2025 Orders Only [facility] EAR, NOSE AND THROAT [facility] [address] [facility] [address] [place] [address] Provider, Abstract 01/07/2025 Orders Only [facility] Oncology and Hematology - Jann Britton [address] [place] [address] Ryan Parker MD 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) 12/31/2024 Orders Only [facility] Oncology and Hematology - Jann Britton Scruggs [address] [place] [address] Ryan Parker MD 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) 12/25/2024 External Device Data STL ABSTRACTION Provider, Abstract 12/24/2024 Results Follow-Up [facility] EAR, NOSE AND THROAT [facility] [address] [facility] [address] [place] [address] Marcus Marrero MD CYTOLOGY, NON GYNE 12/24/2024 Orders Only [facility] Oncology [facility] [address] [place] [address] Ryan Parker MD 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 Orders Only [facility] Oncology [facility] [address] [place] [address] Ryan Parker MD 12/21/2024 Abstract [facility] Lamin Sc[address] [place] [address] Ryan Parker MD 12/20/2024 2:20 PM PROCESSING ARCHIVIST Office Visit [facility] EAR, NOSE AND THROAT [facility] [address] [facility] [address] [place] [address] Marcus Marrero MD Parotid mass (Primary Dx); Malignant neoplasm of parotid gland (CMS/HCC); 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); Acquired lymphedema 12/20/2024 9:45 AM PROCESSING ARCHIVIST Office Visit [facility] [address] [place] [address] Ryan Parker MD Mucoepidermoid carcinoma (CMS/HCC) (Primary Dx) 12/20/2024 Telephone [facility] Oncology [facility] [address] [place] [address] Ryan Parker MD Disability Questions 12/19/2024 External Device Data STL ABSTRACTION Provider, Abstract 12/18/2024 2:30 PM PROCESSING ARCHIVIST Office Visit [facility] EAR, NOSE AND THROAT [facility] [address] [facility] [address] [place] [address] Marcus Marrero MD Weakness of right shoulder (Primary Dx); Malignant neoplasm of parotid gland (CMS/HCC); Impacted cerumen of right ear; Lymphedema; Xerostomia due to radiotherapy 12/18/2024 2:00 PM PROCESSING ARCHIVIST Office Visit [facility] EAR, NOSE AND THROAT [facility] [address] 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) 12/18/2024 Orders Only [facility] EAR, NOSE AND THROAT [facility] [address] [facility] [address] [place] [address] Ro Hernandez SLP Malignant neoplasm of parotid gland (CMS/HCC) (Primary Dx); Oropharyngeal dysphagia 12/18/2024 Orders Only [facility] EAR, NOSE AND THROAT [facility] [address] [facility] [address] [place] [address] Marcus Marrero MD Malignant neoplasm of parotid gland (CMS/HCC) (Primary Dx); Oropharyngeal dysphagia; 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); Acquired lymphedema 12/17/2024 Orders Only [facility] Oncology and Hematology - Jann [address] [place] [address] Ryan Parker MD Mucoepidermoid carcinoma (CMS/HCC) 12/10/2024 Orders Only [facility] Oncology and Hematology - Jann [address] [place] [address] Ryan Parker MD 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) 12/03/2024 Orders Only [facility] Oncology and Hematology - Jann [address] [place] [address] Ryan Parker MD Mucoepidermoid carcinoma (CMS/HCC) 11/26/2024 Orders Only [facility] Oncology and Hematology - Jann [address] [place] [address] Ryan Parker MD 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) 11/19/2024 Orders Only [facility] Oncology and Hematology [facility] [address] [place] [address] Ryan Parker MD 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) 11/13/2024 External Device Data STL ABSTRACTION Provider, Abstract 11/12/2024 Orders Only [facility] Oncology and Hematology [facility] Yolie Scruggs [address] [place] [address] Ryan Parker MD Mucoepidermoid carcinoma ([facility]) 11/05/2024 Orders Only [facility] Oncology and Hematology [facility] [address] [place] [address] Ryan Parker MD Mucoepidermoid carcinoma ([facility]) 11/01/2024 Chart Note [facility] EAR, NOSE AND THROAT [facility] [address] [place] [address] [place] [address] [place] [address] Ro Hernandez SLP 11/01/2024 Telephone [facility] Oncology and Hematology [facility] [address] [place] [address] Ryan Parker MD Nausea from Last 3 Months Family History Medical History Relation Name Comments No Known Problems Brother No Known Problems Child 1 No Known Problems Child 2 Leukemia Father No Known Problems Mother Cancer Sister 1 No Known Problems Sister 2 No Known Problems Sister 3 Relation Name Status Comments Brother Alive Child 1 Alive Child 2 Alive Father Mother Sister 1 Alive Sister 2 Alive Sister 3 Alive Social History Tobacco Use Types Packs/Day Years Used Date Smoking Tobacco: Never Tobacco Cessation:Counseling Given: Not Answered Alcohol Use Standard Drinks/Week Comments Yes 0 (1 standard drink = 0.6 oz pur e alcohol) socially Feeling Safe Answer Date Recorded Are you in a relationship wi th someone who hurts you emotionally and/or physically? No 07/16/2024 Food Insecurity Answer Date Recorded Social/Environmental Concerns No concerns Transportation Needs Answer Date Record ed Social/Environmental Concerns No concerns Housing Stability Answer Date Recorded Social/Environmental Concerns No concerns Utility Needs Answer Date Recorded Social/Environmental Concerns No concerns Sex and Gender Information Value Date Recorded Sex Assigned at Not on file Legal Sex Male 4:08 PM CDT Gender Identity Not on file Sexual Orientation Not on file Last Filed Vital Signs Vital Sign Reading Time Taken Comments Blood Pressure 126/89 12/20/2024 9:14 AM PROCESSING ARCHIVIST Pulse 106 12/20/2024 9:14 AM PROCESSING ARCHIVIST Temperature 37.3 C (99.2 F) 12/20/2024 9:14 AM PROCESSING ARCHIVIST Respiratory Rate 16 12/20/2024 9:14 AM PROCESSING ARCHIVIST Oxygen Saturation 97% 12/20/2024 9:14 AM PROCESSING ARCHIVIST Inhaled Oxygen Concentration - - Weight 66.3 kg (146 lb 3.2 oz) 12/20/2024 9:14 A M PROCESSING ARCHIVIST Height 167.6 cm (5' 6 ) 07/26/2024 10:19 AM CDT Body Mass Index 23.6 07/26/2024 10:19 AM CDT Plan of Treatment Upcoming Encounters Date Type Department Care Team (Late st Contact Info) Description 01/31/2025 4:30 PM CDT Telephone Check Up [facility] Oncology and Hematology - Jann [address] [facility] [address] [place] [address] Ryan Parker MD [address] [facility] [address] [place] [address] 02/05/2025 9:00 AM CDT Appointment [facility] [address] [place] [address] Marcus Marrero MD [address] [facility] [address] [place] [address] 02/12/2025 11:00 AM CDT Office Visit [facility] EAR, NOSE AND THROAT [facility] [place] [address] [facility] [address] [place] [address] Ro Hernandez SLP [address] [facility] [address] [place] [address] 03/11/2025 9:30 AM CDT Appointment [facility]ER [address] [place] [address] Regina Gonsalez, Physical Therapist [address] [place] [phone] 03/18/2025 11:30 AM CDT Appointment [facility]CER [address] [place] [address] Regina Gonsalez, Physical Therapist [address] [place] [address] [phone] 03/19/2025 2:20 PM CDT Office Visit [facility] EAR, NOSE AND THROAT [address] [place] [address] Marcus Marrero MD [address] [place] [address] [place] [address] 03/25/2025 9:30 AM CDT Appointment [facility] [address] [place] [phone] Regina Gonsalez, Physical Therapist [address] [place] [address] [phone] 04/01/2025 9:30 AM CDT Appointment [facility] [address] [place] [address] Regina Gonsalez, Physical Therapist [address] [place] [address] 04/08/2025 9:30 AM CDT Appointment [facility] CENTER [address] [place] [address] Regina Gonsalez, Physical Therapist [address] [facility] [address] [place], [place] [phone] Health Maintenance Due Date Last Done Comments DTAP/TDAP/TD VACCINES (1 - Tdap) 1977 PNEUMOCOCCAL VACCINE 50+ YEARS (1 of 2 - PCV) 08/17/19 77 ZOSTER VACCINE (1 of 2) 1977 COLORECTAL SCREENING 2003 Colorectal Cancer Screening 2003 FIT-DNA Q 3 years 2003 FIT/FOBT Q 1 year 2003 Flex Sig/CT Colonography Q 5 years 2003 INFLUENZA VACCINE (#1) 2024 Preventative Visit- Commercial 11/21/2024 RSV VACCINE (60+ or ) (1 - 1-dose 75+ series) 2033 Medical Devices Implanted Type Area Wind Turbine Service Technician Device Identifier Shelf Expiration Date Model / Serial / Lot Clip Ligating Horizon Sm Ti [id number] - Csc - [id number] Implanted:Qty: 1 on 07/16/2024 by Marucs Marrero MD at [facility] Clip Right: Neck [employer] 03/19/2028 [id number] / / [id number] Procedures Procedure Name Priority Date/Time Associated Diagnosis Comments MD TX SWALLOWING DYSFUNCTION&/ORAL FUNCJ FEEDING Routine 01/10/2025 9:45 AM PROCESSING ARCHIVIST Parotid mass 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) Acquired lymphedema Oropharyngeal dysphagia CYTOLOGY, NON GYNE Routine 12/20/2024 2: 29 PM PROCESSING ARCHIVIST Parotid mass BASIC METABOLIC PANEL Routine 12/20/2024 11:53 AM PROCESSING ARCHIVIST CBC WITH DIFFERENTIAL Routine 12/20/2024 11:52 AM PROCESSING ARCHIVIST MD TX SWALLOWING DYSFUNCTION&/ORAL FUNCJ FEEDING Routine 12/18/2024 1:59 PM PROCESSING ARCHIVIST Malignant neoplasm of parotid gland (CMS/HCC) Oropharyngeal dysphagia 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) CREATININE Routine 12/13/2024 10:[address] SOFT TISSUE NECK W CONTRAST Routine 12/13/2024 9:04 AM PROCESSING ARCHIVIST from Last 3 Months Results * MD TX SWALLOWING DYSFUNCTION&/ORAL FUNCJ FEEDING (01/10/2025 9:45 AM PROCESSING ARCHIVIST) Narrative Ro Hernandez SLP - 01/10/2025 9:45 AM PROCESSING ARCHIVIST Ro Hernandez SLP 01/10/2025 10:29 AM (No note.) us Marcus Marrero MD ORNAMENTAL IRONWORKING SUPERVISOR ORDERABLES Final Re sult * CYTOLOGY, NON GYNE (12/20/2024 2:29 PM PROCESSING ARCHIVIST) CASE REPORT Medical Cytology Report Case: [id number] Authorizing Provider: Marcus Marrero MD Collected: 12/20/2024 02:29 PM Ordering Location: [facility] EAR, NOSE AND Received: 12/21/2024 06:43 AM THROAT [facility] Pathologist: Sadaf Gunderson MD Specimen: Fine needle aspirate, parotid gland, right parotid bed 9:06 AM [facility] FINAL DIAGNOSIS Right parotid bed, fine-needle aspiration: - Insufficient for evaluating the nature of the lesion. 9:06 AM [facility] at 0906 PROCESSING ARCHIVIST GROSS DESCRIPTION Received is a container labeled Noel Sood Jr. and right parotid bed FNA . It holds 30 mL of slightly cloudy colorless CytoLyt fluid. One ThinPrep and one cell block made. SK 9:06 AM [facility] MICROSCOPIC DESCRIPTION The slides are labeled [id number] and Noel Sood. The ThinPrep and cellblock slides show show an essentially acellular specimen with scant fragments of densely fibrous tissue and acellular debris. The specimen is insufficient for evaluating the nature of the lesion. Clinical correlation and follow-up esophagus. 9:06 AM [facility] CLINICAL INFORMATION K11.8 - Parotid mass [ICD-10-CM] 9:06 AM [facility] COMMENT Special stain, immunohistochemical, and/or in situ hybridization results are interpreted with controls that demonstrate appropriate staining reactions. Note on use of immunohistochemistry reagents and in situ hybridization probes: These tests were developed and their performance characteristics determined by [facility] Department of Laboratory Medicine. It has not been cleared or approved by the U.S. Food and Drug Administration. The FDA has determined that such clearance or approval is not necessary. The test is used for clinical purposes. It should not be regarded as investigational or for research. This laboratory is certified to perform high complexity testing. Cases may have been signed out in part or completely in the following laboratories: [facility], CLIA #[id number] [address] [place] [id number] [place] [address]/[place], CLIA #[id number] [address] [place] [address]. 9:06 AM [facility] Body fluid SPECIMEN FROM PAROTID GLAND OBTAINED BY FINE NEEDLE ASPIRATION BIOPSY / Unknown Collection / Unknown 12/20/2024 2:29 PM PROCESSING ARCHIVIST 12/21/2024 6:43 AM PROCESSING ARCHIVIST Marcus Marrero MD PATHOLOGY/CYTOLOGY ORDER ROLANDO Final Result Performing Organization Address City/State/[facility] Co de Phone Number [facility] CLIA# [id number] [address] [place] [address] * BASIC METABOLIC PANEL (12/20/2024 11:53 AM PROCESSING ARCHIVIST) Blood Ryan Parker MD CHEMISTRY ORDERABLES Final Resu lt * CBC WITH DIFFERENTIAL (12/20/2024 11:52 AM PROCESSING ARCHIVIST) Blood us Ryan Parker MD HEMATOLOGY ORDERABLES Final Res ult * MD TX SWALLOWING DYSFUNCTION&/ORAL FUNCJ FEEDING (12/18/2024 1:59 PM PROCESSING ARCHIVIST) Narrative Ro Hernandez, JAMES - 12/18/2024 1:59 PM PROCESSING ARCHIVIST Ro Hernandez ORNAMENTAL IRONWORKING SUPERVISOR 12/18/2024 2:17 PM (No note.) us Marcus Marrero MD ORNAMENTAL IRONWORKING SUPERVISOR ORDERABLES Final Re sult * CREATININE (12/13/2024 10:24 AM PROCESSING ARCHIVIST) Blood us Ryna Parker MD CHEMISTRY ORDERABLES Final Resu lt * CT SOFT TISSUE NECK W CONTRAST (12/13/2024 9:04 AM PROCESSING ARCHIVIST) Anatomical Region Laterality Modality Neck Other Abstract Provider CT ORDERABLES Final Result from Last 3 Months Insurance [employer]/TRUE BLUE PPO Advance Directives For more information, please contact: [phone] * Full Code (Latest Code Status on File) Date Activated Date Inactivated Comments 07/16/2024 12:42 PM 07/18/2024 2:49 PM * Full Code Date Activated Date Inactivated Comments 07/16/2024 7:03 AM 07/16/2024 12:42 PM Care Teams Juke Box Mechanic Relationship Specialty Start Date End Date Chai Escamilla MD [address] [place] [phone] PCP - General Family Practice 06/13/24
--- OUTSIDE RECORDS SUMMARY | 2025-01-28 12:57 | XMS_ITS | Clinical Summary ---
Author Organization [facility] Address [address] [place] [address] Care Team Providers Care Prison Officer Name Role Phone Unavailable Primary Care Provider Unavailabl e Social History Tobacco Use Types Packs/Day Years Used Date Smoking Tobacco: Never Assessed Sex and Gender Information Value Date Recorded Sex Assigned at Not on file Legal Sex Male 8:41 AM ADMISSIONS SUPERVISOR Gender Identity Not on file Sexual Orientation Not on file Plan of Treatment Health Maintenance Due Date Last Done Comments Hepatitis C Virus (HCV) Screening 1960 TdaP Immunization 1960 Colonoscopy 2003 Colorectal Cancer Screening 2003 Cologuard 2008 Immunochemical Fecal Occult Blood 2008 Pneumococcal Immunization (5 0+ years) (1 of 1 - PCV) 2008 Zoster Immunization (1 of 2) 2008 PSA Discussion 2013 Influenza Immunization (#1) 2024 SARS-COV-2 Immunization ( season) 2024 Respiratory Syncytial Virus (RSV) Immunization (Adult) (1 - 1-dose 75+ series) 2033 Hepatitis B Immunization Aged Out No longer eligible based on patient's age to complete this topic Meningococcal Immunization (ACWY) Aged Out No longer eligible based on patient's age to complete this topic Rotavirus Immunization Aged Out No lo nger eligible based on patient's age to complete this topic
--- OUTSIDE RECORDS SUMMARY | 2025-01-28 12:57 | XMS_ITS | Encounter Summary ---
Author Organization [facility] Address [address] [place] [address] Care Team Providers Care Assistant Front Desk Manager Name Role Phone Chai Escamilla MD Primary Care Provider Encounter Details Date Type Department Care Team (Late Contact Info) Description 01/28/2025 Orders Only [facility] Oncology and Hematology - Jann [address] [facility] [address] [place] [address] Ryan Parker MD [address] [facility] [address] [place] [address] Mucoepidermoid carcinoma (CMS/HCC) Social History Tobacco Use Types Packs/Day Years Used Date Smoking Tobacco: Never Alcohol Use Standard Drinks/Week Comments Yes 0 [...] on file Sexual Orientation Not on file documented as of this encounter Plan of Treatment Upcoming Encounters Date Type Department Care Team (Late st Contact Info) Description 01/31/2025 4:30 PM CDT Telephone Check Up [facility] Oncology and Hematology - Jann [address] [facility] [address] [place] [address] Ryan Parker MD [address] [facility] [address] [place] [address] 02/05/2025 9:00 AM CDT Appointment [facility] [address] [place] [address] Marcus Marrero MD [address] [facility] [address] [place] [address] 02/12/2025 11:00 AM CDT Office Visit [facility] EAR, NOSE AND THROAT JOSEF Melvin [address] [place] [address] Ro Hernandez, JAMES [address] [facility] [address] [place] [address] 03/11/2025 9:30 AM CDT Appointment [facility] CANCER [address] [place] [address] Regina Gonsalez, Physical Therapist [id number] [place] [address] [place] [address] 03/18/2025 11:30 AM CDT Appointment [facility] CANCER [address] [place] [address] Regina Gonsalez, Physical Therapist [address] [place] [address] 03/19/2025 2:20 PM CDT Office Visit [facility] EAR, NOSE AND THROAT [address] [place] [address] Marcus Marrero MD [address] [facility]. [address] [place] [address] 03/25/2025 9:30 AM CDT [facility]ment [facility]ENTER [address] [facility] [place] [address] Regina Gonsalez, Physical Therapist [address] [place] [address] [address] [place] [address] 04/01/2025 9:30 AM CDT Appointment [facility] [place] [address] [facility] [address] [place] [address] Regina Gonsalez, Physical Therapist [address] [place] [address] [address] [place] [address] 04/08/2025 9:30 AM CDT Appointment [facility] CENTER [address] 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
--- OUTSIDE RECORDS SUMMARY | 2025-01-28 12:57 | XMS_ITS | Clinical Summary ---
Author Organization [facility] Address [address] [place] [address] Care Team Providers Care Firestopper Technician Name Role Phone Chai Escamilla MD Primary Care Provider Allergies No known active allergies Medications lisinopril 20 MG tablet Take 1 tablet (20 mg total) by mouth daily. Active atorvastatin 20 MG tablet Take 1 tablet (20 mg total) by mouth nightly at bedtime. 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 Gender Identity Not on file Sexual Orientation Not on file Last Filed Vital Signs Vital Sign Reading Time Taken Comments Blood Pressure 136/83 09/09/2023 9:38 AM CDT Pulse 84 09/09/2023 9:38 AM CDT Temperature 37.1 C (98.7 F) 09/09/2023 9:38 AM CDT Respiratory Rate 16 09/09/2023 9:38 AM CDT Oxygen Saturation 97% 09/09/2023 9:38 AM CDT Inhaled Oxygen Concentration - - Weight 81.2 kg (179 lb) 09/09/2023 9:38 AM CDT Height 167.6 cm (5' 6 ) 09/09/2023 9:38 AM CDT Body Mass Index 28.89 09/09/2023 9:38 AM CDT Plan of Treatment Health Maintenance Due Date Last Done Comments Colorectal Cancer Screening Colonoscopy (10 Years) 1958 Hepatitis C 1976 DTaP, Tdap and Td Vaccines ( 1 - Tdap) 1977 Zoster Vaccines (1 of 2) 2008 Pneumococcal Vaccine: 65+ Ye ars (1 of 1 - PCV) 2023 COVID-19 Vaccine (1 - 2023-2 5 season) 2024 Influenza Adult (#1) 2024 PHQ-2 (Physician Kathleen) 11/21/2024 09/09/2023 RSV Immunization or 60+ Years (1 - 1-dose 75+ series) 2033 Meningococcal B Vaccine Aged Out No l onger eligible based on patient's age to complete this topic Meningococcal Vaccine Aged Out No sandie edin eligible based on patient's age to complete this topic RSV Immunizations Under 20 Months Aged Out No longer eligible based on patient's age to complete this topic Insurance Care Teams Firestopper Technician Relationship Specialty Start Date End Date Chai Escamilla MD [address] [place] [id number] PCP - General FAMILY PRACTICE 12/21/20
--- OUTSIDE RECORDS SUMMARY | 2025-01-28 12:57 | XMS_ITS | Encounter Summary ---
Author Organization [facility] Address [address] [place] [address] Care Team Providers Care Composite Engineer Name Role Phone Chai Escamilla MD Primary Care Provider [phone] Encounter Details Date Type Department Care Team (Late Contact Info) Description 12/24/2024 Results Follow-Up [facility] [address] [facility] [address] [place] [address] Marcus Marrero MD [address] [facility] [address] [place] [address] CYTOLOGY, NON GYNE Social History Tobacco Use Types Packs/Day Years [...] Encounters Date Type Department Care Team (Late Contact Info) Description 01/31/2025 4:30 PM CDT Telephone Check Up [facility] - Jann [address] [facility] [address] [place] [address] Ryan Parker MD [address] [facility] [address] [place] [address] 02/05/2025 9:00 AM CDT Appointment [facility] [address] [place] [address] Marcus Marrero MD [address] [facility] [address] [place] [address] 02/12/2025 11:00 AM CDT Office Visit [facility] [address] [place] [phone] Ro Hernandez, JAMES [address] [place] [address] [place] [phone] 03/11/2025 9:30 AM CDT Appointment [facility] [address] [place] [phone] Regina Gonsalez, Physical Therapist [address] [place] [address] [address] [place] [address] 03/18/2025 11:30 AM CDT Appointment [facility] [address] [place] [phone] Regina Gonsalez, Physical Therapist [address] [place] [address] [address] [place] [address] 03/19/2025 2:20 PM CDT Office Visit [facility] [address] [place] [phone] Marcus Marrero MD [address] [facility] Ye . Kael [address] [place] [address] 03/25/2025 9:30 AM CDT Appointment [facility] [address] [facility] [place] [phone] Regina Gonsalez, Physical Therapist [address] [place] [address] [address] [place] [address] 04/01/2025 9:30 AM CDT Appointment [facility] [place] [address] [facility] [place] [phone] Regina Gonsalez, Physical Therapist [address] [place] [address] [address] [place] [address] 04/08/2025 9:30 AM CDT Appointment [facility] [place] [address] [place] [phone] Regina Gonsalez, Physical Therapist [address] [place] [address] [address] [place] [address] documented as of this encounter Visit Diagnoses Not on filedocumented in this encounter Care Teams Composite Engineer Relationship Specialty Start Date End Date Chai Escamilla MD [address] [place] [phone] PCP - General Family Practice 06/13/24 documented as of this encounter
== END 2025-01-28 10:48 | disposition home or self-care (01) ==
PROVIDERS: PCP Family Medicine
DX: C07 Malignant neoplasm of parotid gland (principal)
CPT/HCPCS: 78815; A9552

== ENCOUNTER 2025-10-08 09:16 | Outpatient (CLI) | payer MEDICARE, SELFPAY ==
--- NOTE | ~2025-10-08 | PE_ITS ---
EXAMINATION: PET skull to mid thigh DATE: 10/08/2025 11:21 INDICATION: Mucoepidermoid carcinoma TECHNIQUE: Blood glucose level was 101 mg/dL. 10.455 mCi of 18- fluorodeoxyglucose (18-FDG) was administered i.v. Low dose computed tomography (CT) images were acquired from the base of the brain to the proximal thighs for attenuation correction and anatomic localization. Positron emission tomography (PET) images were acquired in the same distribution beginning 50 minutes after injection. Images including fused PET/CT images were reconstructed in axial, coronal, and sagittal planes. Automated exposure control technique was employed. The dose-length product was 692.98mGy-cm. COMPARISON: 01/28/2025 FINDINGS: Head/neck: There is symmetric increased activity in the oral cavity and ocular muscles without CT correlate, likely physiologic. Again seen are postoperative changes at the right neck including right parotidectomy and resection of significant portion of the right sternocleidomastoid muscle. There is been interval decrease in thickness of soft tissue density likely related to postoperative scarring with mild FDG uptake with maximal SUV of 2.8 situated between the right mandibular ramus and the mastoid process. No significant change in additional asymmetric soft tissue density posterior to the right lateral pterygoid muscle and medial to the mandibular condyle with maximal SUV of 2.9. There is mild likely physiologic uptake extending along the left scalene and left longus capitis muscles without radiologic correlate. The previously enlarged and FDG avid mid left jugular chain lymph node is no longer visualized suggesting other interval response to treatment of metastatic disease or interval resection. No pathologically enlarged cervical lymphadenopathy or suspicious foci of increased FDG uptake in the visualized head or neck. Chest: Mild dependent atelectasis in the bilateral lower lobes. No suspicious pulmonary nodules, pneumonia, pulmonary edema or pleural effusion. Heart size is normal. Small amount of atherosclerotic coronary artery calcific location. No pericardial effusion. Thoracic aorta is normal in caliber. No pathologically enlarged or FDG avid thoracic lymphadenopathy. Abdomen/pelvis/proximal thighs: Physiologic renal accumulation and excretion of FDG activity in the kidneys, bladder and along portions of ureters. Normal degree and heterogenous pattern of increased uptake throughout the liver without radiologic correlate or dominant FDG avid lesion. The gallbladder, pancreas, spleen and bilateral adrenal glands are normal. Mild uptake scattered throughout the bowels without radiologic correlate, also likely physiologic. There are few scattered clonic diverticula without adjacent inflammatory stranding to suggest diverticulitis. Prostatomegaly measuring 5.1 x 4.3 cm. No other abnormal foci of increased FDG uptake or pathologically enlarged lymphadenopathy in the abdomen, pelvis or proximal thighs. Musculoskeletal: No suspicious lytic, blastic or abnormally FDG avid bone lesions. IMPRESSION: 1. Prior abnormally enlarged and FDG avid mid left jugular chain lymph node is no longer visualized consistent with response to treatment of metastatic disease or interval resection. No other lesions in the neck, chest, abdomen or pelvis suspicious for metastatic disease. 2. Persistent mild FDG uptake associated with interval decrease in a small amount of soft tissue at and in the vicinity of the likely resected right parotid gland and would favor evolving postoperative/postradiation scarring over residual or locally recurrent disease. Reviewed, dictated and finalized at location A. E DOG TRAINER IMPRESSION: 1. Prior abnormally enlarged and FDG avid mid left jugular chain lymph node is no longer visualized consistent with response to treatment of metastatic diseas e or interval resection. No other lesions in the neck, chest, abdomen or pelvis suspicious for metastatic disease. 2. Persistent mild FDG uptake associated with interval decrease in a small amou nt of soft tissue at and in the vicinity of the likely resected right parotid g land and would favor evolving postoperative/postradiation scarring over residua l or locally recurrent disease.
== END 2025-10-08 09:17 | disposition home or self-care (01) ==
PROVIDERS: PCP Family Medicine; Visit Provider Internal Medicine Hematology & Oncology
DX: C07 Malignant neoplasm of parotid gland (principal)
CPT/HCPCS: 78815; A9552